=== PATIENT | female | born 1950 | race Caucasian/White ===

== ENCOUNTER → 2019-04-03 | Outpatient (CLI) | payer OTHER ==
[~2019-04-03] VITALS: Ht 172.7 cm; Wt 90.7 kg
[~2019-04-03] MED LIST: ATENOLOL 50MG T50 M1 PO; ESTRADIOL 1 MG T1 M1 PO; MEDROLDOSEPACK PO; NABUMETONE 500500 M1 PO; NEURONTIN 300300 M1 PO; ROPINIROLE HCL0.5 MG PO; ZANAFLEX4 MG PO
[2019-04-03 13:02] VITALS: BP 154/81
--- NOTE | 2019-04-03 13:07 | NUR ---
Pain Clinic Assessment: 1. History of Osteoarthritis: SPINE History of Rheumatoid Arthritis: NONE 2. Height: 5 ft. 8 in. 172.7 cm. Weight: 200.0 lb. oz. 90.720 kg. Patient's BMI: 30.4 3. Vital Signs: BP: 154/81 Pulse: 53 Resp: 14 Temp: 02 Sat: 98 ECG Mon: 4. Pain Intensity: 4-5 5. Fall Risk: Dizziness: N Needs help standing or walking: N Fallen in the last 3 months: N Fall risk comments: 6. Patient on Blood Thinner: None 7. History of Hypertension: N 8. Opioid Therapy greater than 6 weeks: N Opiate Contract Signed: 9. Risk Assessment Tool Provided: 10. Functional Assessment Tool: 11. Recreational Drug Use: Never Drug Type: Tobacco Use: Never Smoker Tobacco Type: Amount or Packs/day: How Many Years: Alcohol Use: No Frequency: Quant:
--- NOTE | 2019-04-04 08:39 | HPC ---
[facility] [address] [place] [address] PAIN MANAGEMENT CONSULTATION Name: MERI CULPN Pavithra Room #: REG ODALYS Stanley#: [id number] Admission: 04/03/19 ������������������ Attend Phys: Janny Barba Discharge: ������������������ Date of : 48 Report #: [id number] THIS REPORT FOR: //name// CC: Lei Grijalva DATE OF SERVICE: 04/03/2019 CHIEF COMPLAINT: Low back pain, left buttock pain. HISTORY OF PRESENT ILLNESS: This is a 69-year-old female who returns to the pain clinic today with history of axial back pain that has been located on her right side of her lumbar spine, but today, she is presenting with left sacroiliac pain. She reports that her pain score is a 4/5. It is an aching, sharp pain, very well localized, does not radiate into her leg or groin. She tells me that it exacerbated by activity and nothing is relieving her pain. She is wondering about pain options today. The patient does report to me that when she was here in January, Dr. Michi Howell gave her Medrol Dosepak and then nabumetone. About 3 weeks after she had started that medication, she finally felt better and has had 100% relief in the right side of her back and has been continuing to take her nabumetone 3 times a day. She reports to me that she did not start any physical therapy that we had recommended or her primary care doctor started her on. She tells me she was doing well until about a week and a half ago. She does not remember injuring herself or turning wrong. The pain just restarted, but this time on the left side. ALLERGIES: CODEINE. CURRENT LIST OF MEDICATIONS: Nabumetone 500 mg 3 times a day, Estrace 1 mg daily, ropinirole 0.5 mg daily, tizanidine 4 mg 3 times a day, atenolol 500 mg daily. PQRS: 1. She does have arthritic changes in her lumbar spine. Denies any rheumatoid arthritis. 2. Height is 5 feet 8 inches, weight is 200, BMI is 30. 3. Vital signs, 154/81, pulse is 53, respirations 14, oxygen sat is 98. 4. Pain score is 4-5. 5. Denies dizziness, does not need help walking or standing, has not fallen in the last 3 months. 6. The patient is not on any blood thinners or hypertension medicines. She does not take opioids. Her functional assessment is 54/70. 7. Recreational drug use, she denies. She is not a smoker [place] [address] PAIN MANAGEMENT CONSULTATION Name: SUNIMAICO Arshad Room #: REG ODALYS Stanley#: [id number] Admission: 04/03/19 ������������������ Attend Phys: Janny Barba Discharge: ������������������ Date of : 48 Report #: [id number] alcohol. We did check the prescription monitoring system, but we do not provide any narcotics for this patient, looks like she had a random fill in September. PHYSICAL EXAMINATION: GENERAL: This is a well-developed, well-nourished, well-hydrated 69-year-old female who appears her stated age, placing her current pain score at 4/5 today. HEENT: Normocephalic, atraumatic. Pupils equal, round and reactive to light. EXTREMITIES: No clubbing, no cyanosis, no edema. MUSCULOSKELETAL: Lower extremity strength is equal and symmetrical at 5/5. Lumbar provocation testing with extension, rotation, lateral flexion intensifies axial back pain on the right and left. The patient does have tenderness over her left sacroiliac joint with no radiculopathy. Supine and seated straight leg raising is negative. The patient walks with a slightly antalgic gait. ASSESSMENT: 1. Facet arthroscopy pain. 2. Lumbar spondylosis without radiculopathy. 3. Neuroforaminal stenosis of the lumbar spine. 4. Left sacroiliac joint dysfunction. 5. Lumbar degeneration. 6. Chronic intractable pain. PLAN: 1. We discussed treatment options with the patient today. I believe that the patient would benefit from a course of physical therapy. We had discussed this in the past at her last visit, though it does not look that her primary care doctor had elected to start this. We will write a prescription today for physical therapy with modalities as needed, an ultrasound and working on a home program for the patient, so she can include stretching at home. 2. The patient is to continue her nabumetone 3 times a day, 500 mg, script given for #90 with 2 additional refills. The patient reminded not to take any [id number]-dgr-tnrglge anti-inflammatories in addition to this medicine. 3. Appointment made for 04/10/[address] Michi Howell for possible left sacroiliac joint injection. 4. The patient is seen in collaboration with Dr. Michi Howell. ��������������������������������������������� <ELECTRONICALLY SIGNED> ���������������������������������������� By: Janny Barba ��������������������������������������������� 04/04/19 0839 [id number] Janny Barba /nt
== END ==
LOC: PAIN 02-06 07:00
DX: M47.26 Other spondylosis with radiculopathy, lumbar region (principal); M48.062 Spinal stenosis, lumbar region with neurogenic claudication; M51.16 Intervertebral disc disorders with radiculopathy, lumbar region; G89.4 Chronic pain syndrome; Z88.8 Allergy status to other drugs, medicaments and biological substances; Z79.899 Other long term (current) drug therapy

== ENCOUNTER → 2019-04-10 | Outpatient (CLI) | payer OTHER ==
[~2019-04-10] VITALS: Ht 172.7 cm; Wt 91.9 kg
--- NOTE | ~2019-04-10 | HPC ---
[facility] [place] [address] [address] [place] [address] PAIN MANAGEMENT CONSULTATION Name: MAICO CULP Room #: REG ODALYS RobertoAida.#: [id number] Admission: 04/10/19 Attend Phys: Michi Howell DO Discharge: Date of : 48 Report #: [id number] THIS REPORT FOR: //name// CC: Lei ROBINS MD DATE OF SERVICE: 04/10/2019 CHIEF COMPLAINT: Low back pain, left-sided only. HISTORY OF PRESENT ILLNESS: As you know, the patient is a 69-year-old female who returns today in followup visit requesting to undergo left L4-L5, L5-S1 intra-articular facet injections under fluoroscopic guidance. She was seen in our clinic on 04/03/2019 where she received refill of medications for her facet arthropathy pain. Unfortunately, her symptoms have progressed. She has not initiated the physical therapy that was written for at her first visit and again on 04/03/2019. She returns today in followup visit to undergo left L4-L5, L5-S1 intra-articular facet injections to address axial back pain issues. She denies injury or trauma that may have led to symptom continuation or propagation. ALLERGIES: CODEINE. CURRENT MEDICATIONS: Nabumetone, esterase, ropinirole, tizanidine, atenolol. SOCIAL HISTORY: The patient reports herself as a nonsmoker. Denies IV or illicit drug use. Denies any chronic alcohol use. She is retired, has been retired for years, not receiving workmen's compensation nor is she trying to obtain disability benefits. She is not in litigation in regards to pain. She is accompanied by her daughter present in room today. IMAGING: No new imaging available. PQRS: The patient has known arthritic changes of the lumbar spine. No rheumatoid arthritis. She is placing pain intensity 4/10. She is not a fall risk, has not had a fall in last 3 months. She is not on blood thinners. She is not treated for hypertension. She is not on chronic opioids. She has a low opioid addiction potential. Pain impact score 54/70, severe interference of daily activities secondary to pain. PHYSICAL EXAMINATION: VITAL SIGNS: Blood pressure 130/67, pulse 62, respiratory rate 16 and unlabored. The patient is 99% on room air. Height 5 feet 8 inches tall, weight 202.6 pounds, BMI calculated 30.8. GENERAL: Well-developed, well-nourished, well-hydrated 69-year-old female appearing stated age, pain is rated around 4/10. [place] [address] PAIN MANAGEMENT CONSULTATION Name: MAICO CULP Room #: REG [facility].#: [id number] Admission: 04/10/19 Attend Phys: Michi Howell DO Discharge: Date of : 48 Report #: [id number] HEENT: Normocephalic, atraumatic. Pupils equal, round, reactive to light. EXTREMITIES: Show no clubbing, no cyanosis, no edema. MUSCULOSKELETAL: Lower extremity strength is symmetrical 5/5. There is tenderness to palpation over the L4-L5, L5-S1 facet joints as well as the left sacroiliac joint today. Deep palpation in the area causes intensification of pain over the L4-L5 and L5-S1 on the left. Lumbar provocation testing is met with increasing pain with extension, rotation, lateral flexion to the left. Seated straight leg raising negative. Supine straight leg raising negative. ASSESSMENT: 1. Lumbosacral spondylosis without radiculopathy. 2. Left sacroiliac joint pain. 3. Facet arthropathy of the lumbar spine. 4. Lumbar degeneration. 5. Chronic intractable pain. PLAN: 1. The patient returns today in followup visit requesting to undergo a left L4-L5, L5-S1 intra-articular facet injection as her medications have become less effective for pain control. She has yet to initiate physical therapy, which has been written for 2 different appointments, the initial appointment of 01/16/2019 and again on 04/03/2019. She has not initiated this very important portion of her treatment course. She returns today in followup visit to undergo this injection. She has been advised risks and benefits. These risks include but are not necessarily limited to bleeding, bruising, infection, worsening pain, no relief of pain, also risk of temporary or permanent muscle weakness, temporary or permanent nerve damage, possible paralysis, post-dural puncture headache and . The patient states understood and wished to proceed. 2. No medication changes made at today's visit. The patient will continue current medical therapy as previously prescribed. 3. We will see the patient back in followup visit on an as needed basis for possible next in the series of intra-articular facet injections. Otherwise, we will see her back for medication management in 3 months DESCRIPTION OF PROCEDURE: Left L4-L5, L5-S1 intra-articular facet injections under fluoroscopic guidance. This is the first procedure of the first series that the patient is undergoing. After obtaining written consent, the patient was taken back to the fluoroscopy suite and placed in a prone position with a pillow under the abdomen to decrease the lumbar lordosis and to facilitate needle entry into the facet joints. The skin overlying the lumbosacral area was prepped and draped in an aseptic fashion. AP and lateral fluoroscopic imaging was obtained. Optimal position of the fluoroscope occurred when the joint line was first visualized. [facility] [address] [address] PAIN MANAGEMENT CONSULTATION Name: MERI CULPEssence Arshad Room #: REG [facility]#: [id number] Admission: 04/10/19 Attend Phys: Michi Howell DO Discharge: Date of : 48 Report #: [id number] The facet joints were identified radiographically directed adjacent to the superior articular process of the caudad vertebrae. The skin overlying the target site(s) of injection was anesthetized using 3 mL of 1% lidocaine. A 22-gauge 3.5 inch spinal needle with a bent tip was advanced towards the L4-L5 and L5-S1 facet joints on the left side under fluoroscopic guidance. The firm posterior capsule had its characteristic feel and the needle was advanced a few additional millimeters beyond the joint capsule into the joint space, but not into the articular cartilage. After the joint space was entered and aspiration was negative for heme or CSF, 0.2 mL of Omnipaque was injected demonstrating a characteristic facet arthrogram. After negative aspiration for heme or CSF, 1.5 mL of solution containing 1 mL, 40 mg/mL, 40 mg total triamcinolone and 2 mL bupivacaine 0.5% was slowly injected at each of 2 facets. The needles was then removed. There were no apparent complications. The patient tolerated the procedure well and was carefully escorted to the recovery room in stable condition. The VAS was 4/10 before the procedure and 0/10 ten minutes after the procedure. After meeting discharge criteria, the patient was discharged home. By: 0822 2131 Michi Howell DO /nt
[2019-04-10 10:44] VITALS: BP 130/67
--- NOTE | 2019-04-10 10:54 | NUR ---
Pain Clinic Assessment: 1. History of Osteoarthritis: SPINE History of Rheumatoid Arthritis: NONE 2. Height: 5 ft. 8 in. 172.7 cm. Weight: 202.6 lb. oz. 91.899 kg. Patient's BMI: 30.8 3. Vital Signs: BP: 130/67 Pulse: 62 Resp: 16 Temp: 02 Sat: 99 ECG Mon: 4. Pain Intensity: 4 5. Fall Risk: Dizziness: N Needs help standing or walking: N Fallen in the last 3 months: N Fall risk comments: 6. Patient on Blood Thinner: None 7. History of Hypertension: N 8. Opioid Therapy greater than 6 weeks: N Opiate Contract Signed: 9. Risk Assessment Tool Provided: LOW RISK 0/3 10. Functional Assessment Tool: 54/70 11. Recreational Drug Use: Never Drug Type: Tobacco Use: Never Smoker Tobacco Type: Amount or Packs/day: How Many Years: Alcohol Use: No Frequency: Quant:
== END | disposition home or self-care (01) ==
LOC: PAIN 06:56
DX: M54.5 Low back pain (principal); M47.816 Spondylosis without myelopathy or radiculopathy, lumbar region; M51.36 Other intervertebral disc degeneration, lumbar region; M53.3 Sacrococcygeal disorders, not elsewhere classified; G89.29 Other chronic pain; Z88.8 Allergy status to other drugs, medicaments and biological substances; Z79.899 Other long term (current) drug therapy

== ENCOUNTER → 2019-08-28 | Outpatient (CLI) | payer OTHER ==
[~2019-08-28] VITALS: Ht 172.7 cm; Wt 96.2 kg
[~2019-08-28] MED LIST changes: +OMEPRAZOLE 20 M20 M1 PO
[2019-08-28 10:25] VITALS: BP 131/51
--- NOTE | 2019-08-28 10:44 | NUR ---
Pain Clinic Assessment: 1. History of Osteoarthritis: SPINE History of Rheumatoid Arthritis: NONE 2. Height: 5 ft. 8 in. 172.7 cm. Weight: 212.0 lb. oz. 96.163 kg. Patient's BMI: 32.2 3. Vital Signs: BP: 131/51 Pulse: 64 Resp: 16 Temp: 02 Sat: 98 ECG Mon: 4. Pain Intensity: 0 5. Fall Risk: Dizziness: N Needs help standing or walking: N Fallen in the last 3 months: N Fall risk comments: 6. Patient on Blood Thinner: None 7. History of Hypertension: N 8. Opioid Therapy greater than 6 weeks: N Opiate Contract Signed: 9. Risk Assessment Tool Provided: LOW RISK 0/3 10. Functional Assessment Tool: 54/70 11. Recreational Drug Use: Never Drug Type: Tobacco Use: Never Smoker Tobacco Type: Amount or Packs/day: How Many Years: Alcohol Use: No Frequency: Quant:
--- NOTE | 2019-08-29 08:19 | HPC ---
[facility] [address] [place] [address] PAIN MANAGEMENT CONSULTATION Name: MAICO CULP Room #: REG ODALYS Stanley#: [id number] Admission: 08/28/19 Attend Phys: Janny Barba Discharge: Date of : 48 Report #: [id number] THIS REPORT FOR: cc: Lei Cabrera Ahmad W. DO Hocker, Amanda CNS THIS REPORT FOR: //name// CC: Lie Barba DATE OF SERVICE: 08/28/2019 CHIEF COMPLAINT: Low back pain. HISTORY OF PRESENT ILLNESS: This is a pleasant 69-year-old female who returns to the pain clinic today for a refill of her nabumetone. She is rating her pain score as 0/10 today. She feels that the lumbar facet injection that Dr. Michi Howell performed on her in March has given her 100% relief in her lower back. She reports that she occasionally has twinges of pain, but continues for the most part to be pain free in her lower back. The patient does report an achy feeling sensation in some of her joints and has been continuing nabumetone twice a day. She is here to discuss if she needs to continue this medication and is requesting a refill. The patient does report she has been having some gastroesophageal reflux at bedtime when she lies down. She does have an appointment to see a contractor buyer soon. She does deny any burning sensations in her stomach. Her only problems arise when she is lying down at bedtime. ALLERGIES: CODEINE. CURRENT LIST OF MEDICATIONS: Omeprazole, nabumetone, esterase, ropinirole, Zanaflex and Tenormin. PQRS: 1. She has a history of osteoarthritis in her spine. Denies any rheumatoid arthritis. 2. Height is 5 feet 8 inches, weight is 212, BMI is 32. 3. Vital signs: Blood pressure 131/51, pulse is 64, respirations 16, oxygen sat is 98. 4. Pain score is 0. 5. Denies dizziness, does not need help walking or standing, has not fallen in the last 3 months. 6. The patient is not on any blood thinners or medicine for hypertension. 7. She is not on any opioids. Her risk assessment tool is low. [address] [address] PAIN MANAGEMENT CONSULTATION Name: MAICO CULP [facility] [id number] Admission: 08/28/19 Attend Phys: Janny Barba Discharge: Date of : 48 Report #: [id number] assessment is . 8. Recreational drug use, she denies. She is not a smoker and does not drink alcohol. According to the prescription monitoring system, she has not filled any opioids and she does have an occasional alprazolam that she takes from her primary doctor. PHYSICAL EXAMINATION: GENERAL: This is alert and orientated 69-year-old female who appears her stated age, placing her current pain score at 0/10 today. HEENT: Normocephalic, atraumatic. Pupils equal, round and reactive to light. MUSCULOSKELETAL: She has no clubbing, no cyanosis, no edema. Her lower extremity strength judged to be symmetrical at 5/5 with intact sensation from L1-S2. She has slight tenderness in her lumbar spine in the left side greater than the right. ASSESSMENT: 1. Lumbosacral spondylosis without radiculopathy. 2. Facet arthroscopy of the lumbar spine. 3. Lumbar degeneration. 4. Chronic intractable pain. PLAN: 1. We discussed treatment options with the patient today. The patient continues to have 100% relief from the facet injection that Dr. Michi Howell performed in March. The patient has been very happy with this result. 2. The patient continues to take her naproxen taking it 2 times a day. Occasionally, she does require 3 times a day. She has been taking this with food and is not feeling any GI upset from this medication. I explained to the patient that our goal is lowest most effective dose. Today, she is reporting a pain score 0/10 if she is able to get by with 1 pill a day that is our goal or to wean off these medicines and the patient understands. She reports she will continue at 2 a day, then decrease to 1 a day and hopefully off, keeping it in her medicine cabinet if she has days that her pain is increased. We will electronically send prescription refills for this medicine today. 3. I encouraged the patient to get this medicine from her primary care doctor if she needs to continue it, though we will gladly see her if need be. The patient is seen today in collaboration with Dr. Michi Howell. <ELECTRONICALLY SIGNED> By: Janny Barba 08/29/19 0819 [id number] Janny Barba /nae
== END ==
LOC: PAIN 08-21 06:38
DX: M47.26 Other spondylosis with radiculopathy, lumbar region (principal); M47.818 Spondylosis without myelopathy or radiculopathy, sacral and sacrococcygeal region; M12.88 Other specific arthropathies, not elsewhere classified, other specified site; M51.16 Intervertebral disc disorders with radiculopathy, lumbar region; G89.29 Other chronic pain; Z88.5 Allergy status to narcotic agent; Z79.899 Other long term (current) drug therapy

== ENCOUNTER → 2019-09-18 | Outpatient (CLI) | payer OTHER ==
[~2019-09-18] VITALS: Ht 172.7 cm; Wt 93.9 kg
[~2019-09-18] MED LIST changes: +MEDROL DOSPAK21 TA1 PO
[2019-09-18 10:47] VITALS: BP 138/71
--- NOTE | 2019-09-18 11:00 | NUR ---
Pain Clinic Assessment: 1. History of Osteoarthritis: SPINE History of Rheumatoid Arthritis: NONE 2. Height: 5 ft. 8 in. 172.7 cm. Weight: 207.0 lb. oz. 93.895 kg. Patient's BMI: 31.5 3. Vital Signs: BP: 138/71 Pulse: 65 Resp: 18 Temp: 02 Sat: 100 ECG Mon: 4. Pain Intensity: 6 5. Fall Risk: Dizziness: N Needs help standing or walking: N Fallen in the last 3 months: N Fall risk comments: 6. Patient on Blood Thinner: None 7. History of Hypertension: Y 8. Opioid Therapy greater than 6 weeks: N Opiate Contract Signed: 9. Risk Assessment Tool Provided: LOW RISK 0/3 10. Functional Assessment Tool: 54/70 11. Recreational Drug Use: Never Drug Type: Tobacco Use: Never Smoker Tobacco Type: Amount or Packs/day: How Many Years: Alcohol Use: No Frequency: Quant:
--- NOTE | 2019-09-19 11:52 | HPC ---
[facility] [place] [address] PAIN MANAGEMENT CONSULTATION Name: MAICO CULP Room #: REG ODALYS MirandaRobertoAidaRoberto#: [id number] Admission: 09/18/19 Attend Phys: Michi Howell DO Discharge: Date of : 48 Report #: [id number] THIS REPORT FOR: cc: Lei Cabrera Ahmad W. DO Johnson, James E. DO ~ DATE OF SERVICE: 09/18/2019 REFERRING PHYSICIAN: Dr. Lei Cabrera. CHIEF COMPLAINT: Right low back pain. HISTORY OF PRESENT ILLNESS: As you know, the patient is a 69-year-old female who returns today in followup visit with recurrent right low back pain. She is able to localize pain directly over the facet joints at L4-L5 and L5-S1 as well as partial SI joint. She states her pain is aching, stabbing, sharp, pinching, exacerbated with standing, lying down, seated position, getting up out of a seated position and repositioning. Resting tends to improve pain. She is placing pain score 6/10. She states the pain has been present for about 1 week. She denies injury or trauma that may have led to symptom development. She returns today in followup visit to discuss the possibility of treatment for her acute onset of right low back pain consistent with her back pain that was present at our initial visit in January of 2019. At that visit, the patient underwent medication management which provided improvement. ALLERGIES: CODEINE. CURRENT MEDICATIONS: Nabumetone, omeprazole, estradiol, ropinirole, tizanidine, atenolol. SOCIAL HISTORY: The patient denies tobacco use. Denies IV or illicit drug use. Denies any chronic alcohol use. She is retired. She is accompanied by her daughter present in room today. IMAGING: No new imaging available. PQRS: The patient has osteoarthritic changes of the lumbar spine, bilateral hips. No rheumatoid arthritis. She is placing pain intensity of 6/10. She is not a fall risk, has not had a fall in last 3 months. She is not on blood thinners, but is treated for hypertension. She is not on chronic opioids, has a low opiate addiction potential. Pain impact score 54/70 indicating severe interference of daily activities secondary to pain. PHYSICAL EXAMINATION: [facility] [address] [place] [address] PAIN MANAGEMENT CONSULTATION Name: MAICO CULP Room #: [facility]#: [id number] Admission: 09/18/19 Attend Phys: Michi Howell DO Discharge: Date of : 48 Report #: [id number] VITAL SIGNS: Blood pressure 138/71, pulse 65, respiratory rate 18 and unlabored. The patient is 100% on room air. Height 5 feet 8 inches tall, weight 207 pounds, BMI calculated 31.5. GENERAL: Well-developed, well-nourished, well-hydrated 69-year-old female appearing stated age, pain is rated today 6/10. HEENT: Normocephalic, atraumatic. Pupils equal, round, reactive to light. EXTREMITIES: Show no clubbing, no cyanosis, and no edema. MUSCULOSKELETAL: The patient has some palpatory tenderness over the paraspinal musculature of lower lumbar spine. No spinous process tenderness. Deep palpation over the facet joints at L4-L5 and L5-S1 on the right causes intensification of pain. Lumbar provocation testing including extension, rotation, lateral flexion all intensify axial back pain on the right, negative left. There is some palpatory tenderness over the SI joint which is mild in nature. Seated straight leg raising negative. Supine straight leg raising negative. ASSESSMENT: 1. Lumbosacral spondylosis without radiculopathy. 2. Facet arthropathy of the lumbar spine. 3. Acute pain. PLAN: 1. Based on today's physical exam and history, the patient has provided the description, the patient uses in regards to pain as well as the location of symptoms she is experiencing pain upon the likely source of the patient's pain is the facet joints of the lower lumbar region, specifically the L4-L5 and L5-S1 level on the right side. We discussed with the patient the treatment options for facet arthropathy pain. The following was discussed with the patient today. 2. We discussed physical therapy, stretching exercise, core strengthening and concerted effort at weight loss as a treatment course. We discussed medication management initiating a Medrol Dosepak for anti-inflammatory effects and then continue her current nonsteroidal anti-inflammatory. We discussed intra-articular facet injections, medial branch nerve blocks and radiofrequency lesioning. After reviewing the risks and benefits of all proposed treatment options, the patient chose to begin with conservative medical management. 3. The patient was provided prescription of Medrol Dosepak 1 pack to take as directed. She was given the prescription today. She can initiate the medication today if she wishes to do so. We will start tomorrow and follow directions as indicated. Prescription was provided to the patient via E-scribe to her local pharmacy. 4. We will see the patient back in followup visit for possible intra-articular facet injections, medial branch nerve blocks and radiofrequency lesioning assuming no improvement in symptoms with the Medrol Dosepak. We are hopeful the [facility] [address] [place] [address] PAIN MANAGEMENT CONSULTATION Name: MAICO CULP Room #: [facility]#: [id number] Admission: 09/18/19 Attend Phys: Michi Howell DO Discharge: Date of : 48 Report #: [id number] patient will see good and prolonged benefit, but will be available to see her back to undergo the injections if necessary. <ELECTRONICALLY SIGNED> By: Michi Howell DO 09/19/19 1152 [id number] Michi Howell DO /nt
== END ==
LOC: PAIN 10:29
DX: M47.817 Spondylosis without myelopathy or radiculopathy, lumbosacral region (principal); M12.88 Other specific arthropathies, not elsewhere classified, other specified site; Z88.5 Allergy status to narcotic agent; Z79.899 Other long term (current) drug therapy